=== PATIENT | female | born 1945 | race Caucasian/White ===

== ENCOUNTER → 2017-10-22 | Day surgery (SDC) | payer OTHER, MEDICARE ==
[~2017-10-22] VITALS: Ht 162.6 cm; Wt 72.6 kg
[~2017-10-22] MED LIST: ALPRAZOLAM0.25 M1 PO; CALCIUM 500 +1 EAC5 PO; EVISTA60 MG PO; KEPPRA250 M1 PO; MULTIVITAMINS1 EAC9 PO; VITAMIN B-650 M2 PO
--- NOTE | 2017-10-22 13:46 | Operative Report ---
Operative/Inv Procedure Report Surgery Date: 10/22/17 Name of Procedure: #1 left knee arthroscopic partial medial meniscectomy #2 left knee medial femoral condylar chondroplasty Pre-Operative Diagnosis: #1 left knee medial meniscal tear #2 left knee osteoarthritis Post-Operative Diagnosis: Same Estimated Blood Loss: scant Surgeon/Lab Analyst: Javier ARROYO,Donny Anesthesia: laryngeal mask airway Implants: None Drains: None Specimens: None Tourniquet: None used Complications: None Condition: Stable Operative Indication: Patient is a 72-year-old woman who developed acute left knee pain. Evaluation revealed a unstable medial meniscal tear. Patient was treated conservative for. At time but unfortunately had increasing symptoms that interfere with normal activities of daily living. Due to ongoing symptoms as well as MRI findings of medial meniscal tear, she wished to proceed with arthroscopic management of this problem. Risks benefits and expectations of the surgical procedure were discussed which included but were not limited to persistent knee pain, need for substance surgery, advancement of her arthritis infection and anesthesia risks. Patient understood that some of her pain was from the underlying osteoarthritis but she would benefit from arthroscopic meniscectomy if the symptoms were at least partially due to the new medial meniscal tear Operative/Procedure Note Note: Patient was brought to the operating room and transferred to the operating table. Once under appropriate anesthesia the left lower extremity was prepped and draped in standard fashion. Preoperative IV antibiotics were given prophylactically. A standard infrapatellar lateral portal site was established scope was inserted. Patellofemoral compartment was visualized. Mild synovitis throughout the suprapatellar pouch. No evidence of pathologic plica. I entered the medial joint line. There was a clear unstable medial meniscal tear starting at the body of the meniscus and extending posteriorly to the posterior horn. There were degenerative changes of the medial compartment ranging from grade 2 to grade 3. A medial infrapatellar portal site was established under direct vision. I used the straight biter followed by the shaver to complete the partial medial meniscectomy. Also, the edges of the meniscal tears were treated with the Dudley cautery to minimize further damage. The articular cartilage along the medial femoral condyle was found to be somewhat unstable in certain parts and these unstable portions of the articular cartilage were debrided as a chondroplasty this was followed by using the were Dudley device to stabilize the articular cartilage edges to minimize future issues with the articular cartilage degeneration. Copious irrigation of the knee followed. Synovectomy was also completed anteriorly to facilitate visualization of this medial meniscal tea. The ACL was visualized and probed and was found to be intact. I placed the leg into a figure 4 position and visualized lateral compartment. No significant degenerative changes of the lateral compartment. Mild fraying of the central edges of the lateral meniscus. No unstable tears. I went up the lateral gutter. No evidence of loose bodies. I went up to the patellofemoral compartment and did a synovectomy around the patellofemoral joint to minimize any impingement in this area copious irrigation followed. Hemostasis was obtained. I removed all fluid and answers from the knee. Portal sites were closed with interrupted nylon sutures. Appropriate just his were applied and patient was awakened and taken the recovery room in good condition. No intraoperative Locations blood loss was minimal Discharge Disposition: PACU
== END ==
LOC: STS 03:32
DX: M23.222 Derangement of posterior horn of medial meniscus due to old tear or injury, left knee (principal); M17.12 Unilateral primary osteoarthritis, left knee; Z87.891 Personal history of nicotine dependence; R56.9 Unspecified convulsions
CPT/HCPCS: J2250; J3490